=== PATIENT | male | born 1930 | race Caucasian/White ===

== ENCOUNTER 2016-05-21 01:21 | Inpatient (IN) | payer OTHER ==
[2016-05-21] VITALS (24 sets, daily range): BP systolic 107–147; BP diastolic 64–95
[~2016-05-21] VITALS: Ht 167.6 cm; Wt 73.7 kg
[~2016-05-21 01:21] MED LIST: ALLEGRA ODT30 MG PO; AMLODIPINE BESY10 MG PO; COREG CR10 MG PO; ECOTRIN325 MG PO; FLOMAX0.4 M1 PO; HYDROCHLOROTH12.5 M1 PO; OMEPRAZOLE40 M1 PO; PLAVIX75 MG PO; PRAVASTATIN SOD80 MG PO; PROAIR HFA8.5 GM IH; SINGULAIR10 MG PO; SYMBICORT60 INHALAT IH
[2016-05-21 01:59] LABS: HEMATOCRIT 40.8 % (38.0-50.0); MCH 32.6 PG (29.0-34.0); MCV 92.9 FL (86-99); MEAN PLAT.VOLUME 8.3 uM^3 (9.0-12.4); PLATELET COUNT 350 K/uL (156-360); RBC DIS.WIDTH-CV 14.5 % (11.8-14.6); RBC DIS.WIDTH-SD 47.2 % (39-53); RED BLOOD COUNT 4.39 M/uL (4.00-5.50); WHITE BLOOD COUNT 13.8 K/uL (4.1-10.2)
[2016-05-21 02:14] LABS: CHLORIDE 99 mEq/L (99-109); POTASSIUM 3.8 mEq/L (3.7-5.4); SODIUM 136 mEq/L (136-147)
[2016-05-21 02:16] LABS: GLUCOSE 149 mg/dL (70-99)
[2016-05-21 02:17] LABS: ANION GAP 13 MEQ/L (2-14)
[2016-05-21 02:19] LABS: ALKALINE PHOSPHATASE 177 IU/L (3-129)
[2016-05-21 02:20] LABS: GFR ESTIMATE (CALCULATED) 44 mL/min/
[2016-05-21 02:21] LABS: TROP-I INTERPRETATION NEGATIVE; TROPONIN-I 0.14 ng/mL (0.0-0.30)
[2016-05-21 02:21] LABS: UREA NITROGEN (BUN) 40 mg/dL (9-23)
[2016-05-21 02:40] LABS: TOTAL BILIRUBIN 0.9 mg/dL (0.0-1.0)
[2016-05-21 02:58] LABS: EOSINOPHIL (%) 0 % (0-5); HEMATOLOGY COMMENT 1 REV; IMMATURE GRANULOCYTE (%) 2.5 % (0.0-0.7); IMMATURE GRANULOCYTE COUNT 3.4 K/uL; MONOCYTE (%) 12.8 % (3-12); MONOCYTE COUNT 1.8 K/uL (0-0.8); NEUTROPHIL (%) 77.2 % (45-76); NEUTROPHIL COUNT 10.6 K/uL (1.8-6.4); USER ID SLU
[2016-05-21] MEDS ORDERED: AMLODIPINE BESYL5 MG PO (05:40)
[2016-05-21] MEDS ORDERED: OMEPRAZOLE20 MG PO (05:42)
[2016-05-21] MEDS ORDERED: POTASSIUM CHLO20 ME1 PO (05:43)
[2016-05-21] MEDS ORDERED: FUROSEMIDE40 MG PO (05:47)
[2016-05-21 06:58] LABS: INTER. NORMALIZED RATIO 1.1; PROTHROMBIN TIME 11.1 (9.2-11.2); PTT 33.6 (25-32)
[2016-05-21 07:24] LABS: INFLUENZA A VIRAL ANTIGEN NEGATIVE; INFLUENZA B VIRAL ANTIGEN NEGATIVE
[2016-05-21 07:27] LABS: Estimated Average Glucose 123 mg/dL (70-123); HEMOGLOBIN A1c (GLYCOHEMOGLOB) 5.9 % HGB (Below 5.7)
[2016-05-21] MEDS ORDERED: FLOMAX0.4 MG PO (08:33)
[2016-05-21] MEDS ORDERED: SINGULAIR10 MG PO (08:33)
[2016-05-21] MEDS ORDERED: VENTOLIN HFA18 GM IH (08:35)
[2016-05-21 08:44] LABS: ADD MIUA? NO; BILIRUBIN NEGATIVE; BLOOD NEGATIVE; COLOR YELLOW ((YELLOW)); GLUCOSE (STRIP) NEGATIVE; KETONES NEGATIVE; LEUKOCYTES NEGATIVE; NITRITE NEGATIVE; PROTEIN (STRIP) TRACE; SPECIFIC GRAVITY 1.013 (1.000-1.030); UCUL ADDED? NO
[2016-05-21 10:14] LABS: TROP-I INTERPRETATION NEGATIVE; TROPONIN-I 0.16 ng/mL (0.0-0.30)
[2016-05-21 10:25] LABS: HEMATOCRIT 40.2 % (38.0-50.0); MCH 32.6 PG (29.0-34.0); MCHC 35.1 G/DL (30.0-36.0); MCV 92.8 FL (86-99); MEAN PLAT.VOLUME 8.5 uM^3 (9.0-12.4); PLATELET COUNT 350 K/uL (156-360); RBC DIS.WIDTH-CV 14.3 % (11.8-14.6); RBC DIS.WIDTH-SD 46.6 % (39-53); RED BLOOD COUNT 4.33 M/uL (4.00-5.50); WHITE BLOOD COUNT 10.5 K/uL (4.1-10.2)
[2016-05-21 10:34] LABS: CHLORIDE 100 mEq/L (99-109); POTASSIUM 3.9 mEq/L (3.7-5.4)
[2016-05-21 10:35] LABS: SODIUM 134 mEq/L (136-147)
[2016-05-21 10:37] LABS: GLUCOSE 190 mg/dL (70-99)
[2016-05-21 10:38] LABS: ANION GAP 13 MEQ/L (2-14)
[2016-05-21 10:39] LABS: TOTAL BILIRUBIN 0.8 mg/dL (0.0-1.0)
[2016-05-21 10:40] LABS: ALKALINE PHOSPHATASE 167 IU/L (3-129); GFR ESTIMATE (CALCULATED) 47 mL/min/
[2016-05-21 10:42] LABS: UREA NITROGEN (BUN) 39 mg/dL (9-23)
[2016-05-21 16:01] LABS: TROP-I INTERPRETATION NEGATIVE; TROPONIN-I 0.12 ng/mL (0.0-0.30)
[2016-05-22 03:15] VITALS: BP 121/81
[2016-05-22 05:27] LABS: MCH 31.3 PG (29.0-34.0); MCHC 33.5 G/DL (30.0-36.0); MCV 93.5 FL (86-99); MEAN PLAT.VOLUME 9.1 uM^3 (9.0-12.4); PLATELET COUNT 289 K/uL (156-360); RBC DIS.WIDTH-CV 14.4 % (11.8-14.6); RBC DIS.WIDTH-SD 48.7 % (39-53); RED BLOOD COUNT 4.28 M/uL (4.00-5.50); WHITE BLOOD COUNT 8.9 K/uL (4.1-10.2)
[2016-05-22 09:30] VITALS: BP 121/81
[2016-05-22 12:10] VITALS: BP 121/86
[2016-05-22 12:10] LABS: INTER. NORMALIZED RATIO 1.2; PROTHROMBIN TIME 11.8 (9.2-11.2)
[2016-05-22 19:51] VITALS: BP 122/78
[2016-05-23 01:44] VITALS: BP 125/76
[2016-05-23 05:42] LABS: HEMATOCRIT 38.8 % (38.0-50.0); MCH 31.7 PG (29.0-34.0); MEAN PLAT.VOLUME 9.4 uM^3 (9.0-12.4); PLATELET COUNT 288 K/uL (156-360); RBC DIS.WIDTH-CV 14.3 % (11.8-14.6); RBC DIS.WIDTH-SD 48.5 % (39-53); RED BLOOD COUNT 4.17 M/uL (4.00-5.50); WHITE BLOOD COUNT 10.1 K/uL (4.1-10.2)
[2016-05-23 05:50] VITALS: BP 130/81
[2016-05-23 05:50] LABS: ANION GAP 13 MEQ/L (2-14); CHLORIDE 96 MEQ/L (99-109); GFR ESTIMATE (CALCULATED) 47 mL/min/; GLUCOSE 164 mg/dL (70-99); POTASSIUM 3.7 MEQ/L (3.7-5.4); SAMPLE HEMOLYSIS CHECK 0; SAMPLE ICTERIC CHECK 0; SAMPLE LIPEMIA CHECK 0; SODIUM 133 MEQ/L (136-147)
[2016-05-23 06:02] LABS: UREA NITROGEN (BUN) 60 mg/dL (9-23)
[2016-05-23 08:28] VITALS: BP 130/80
[2016-05-23 11:03] VITALS: BP 128/82
[2016-05-23 15:33] VITALS: BP 117/74
[2016-05-23 20:20] VITALS: BP 131/64
[2016-05-24 00:42] VITALS: BP 147/81
[2016-05-24 05:38] VITALS: BP 123/71
[2016-05-24 07:16] LABS: HEMATOCRIT 40.3 % (38.0-50.0); MCH 31.4 PG (29.0-34.0); MCHC 33.7 G/DL (30.0-36.0); MCV 93.1 FL (86-99); MEAN PLAT.VOLUME 9.3 uM^3 (9.0-12.4); PLATELET COUNT 284 K/uL (156-360); RBC DIS.WIDTH-CV 14.4 % (11.8-14.6); RBC DIS.WIDTH-SD 48.6 % (39-53); RED BLOOD COUNT 4.33 M/uL (4.00-5.50); WHITE BLOOD COUNT 8.9 K/uL (4.1-10.2)
[2016-05-24 07:26] VITALS: BP 121/71
[2016-05-24 07:34] LABS: ANION GAP 12 MEQ/L (2-14); CHLORIDE 97 MEQ/L (99-109); GFR ESTIMATE (CALCULATED) 47 mL/min/; GLUCOSE 161 mg/dL (70-99); SAMPLE HEMOLYSIS CHECK 0; SAMPLE ICTERIC CHECK 0; SAMPLE LIPEMIA CHECK 0; SODIUM 135 MEQ/L (136-147); UREA NITROGEN (BUN) 61 mg/dL (9-23)
[2016-05-24 11:17] VITALS: BP 122/78
[2016-05-24 16:00] VITALS: BP 121/74
[2016-05-24 19:34] VITALS: BP 130/84
[2016-05-25] VITALS (7 sets, daily range): BP systolic 113–138; BP diastolic 62–92
[2016-05-25 06:51] LABS: EOSINOPHIL (%) 0 % (0-5); HEMATOCRIT 41.3 % (38.0-50.0); IMMATURE GRANULOCYTE (%) 1.4 % (0.0-0.7); IMMATURE GRANULOCYTE COUNT 0.2 K/uL; LYMPHOCYTE COUNT 0.7 K/uL (1.0-2.8); MCH 33.7 PG (29.0-34.0); MCHC 35.6 G/DL (30.0-36.0); MCV 94.7 FL (86-99); MEAN PLAT.VOLUME 9.4 uM^3 (9.0-12.4); MONOCYTE (%) 1.7 % (3-12); MONOCYTE COUNT 0.2 K/uL (0-0.8); NEUTROPHIL (%) 89.8 % (45-76); NEUTROPHIL COUNT 9.5 K/uL (1.8-6.4); PLATELET COUNT 264 K/uL (156-360); RBC DIS.WIDTH-CV 14.3 % (11.8-14.6); RBC DIS.WIDTH-SD 49.4 % (39-53); RED BLOOD COUNT 4.36 M/uL (4.00-5.50); WHITE BLOOD COUNT 10.5 K/uL (4.1-10.2)
[2016-05-25 07:16] LABS: ANION GAP 12 MEQ/L (2-14); CHLORIDE 98 MEQ/L (99-109); GFR ESTIMATE (CALCULATED) 47 mL/min/; GLUCOSE 190 mg/dL (70-99); SAMPLE HEMOLYSIS CHECK 0; SAMPLE ICTERIC CHECK 0; SAMPLE LIPEMIA CHECK 0; SODIUM 137 MEQ/L (136-147); UREA NITROGEN (BUN) 62 mg/dL (9-23)
[2016-05-26 04:11] VITALS: BP 139/78
[2016-05-26 06:41] LABS: HEMATOCRIT 42.1 % (38.0-50.0); MCHC 34.7 G/DL (30.0-36.0); MEAN PLAT.VOLUME 9.7 uM^3 (9.0-12.4); PLATELET COUNT 254 K/uL (156-360); RBC DIS.WIDTH-CV 14.4 % (11.8-14.6); RBC DIS.WIDTH-SD 49.8 % (39-53); RED BLOOD COUNT 4.43 M/uL (4.00-5.50); WHITE BLOOD COUNT 9.2 K/uL (4.1-10.2)
[2016-05-26 07:06] LABS: ANION GAP 10 MEQ/L (2-14); CHLORIDE 97 MEQ/L (99-109); GFR ESTIMATE (CALCULATED) 51 mL/min/; GLUCOSE 179 mg/dL (70-99); MAGNESIUM 2.4 mg/dl (1.3-2.7); POTASSIUM 4.1 MEQ/L (3.7-5.4); SAMPLE HEMOLYSIS CHECK 0; SAMPLE ICTERIC CHECK 0; SAMPLE LIPEMIA CHECK 0; SODIUM 136 MEQ/L (136-147); UREA NITROGEN (BUN) 58 mg/dL (9-23)
[2016-05-26 07:38] VITALS: BP 135/75
[2016-05-26 11:47] VITALS: BP 120/79
[2016-05-26 15:50] VITALS: BP 134/70
[2016-05-26 19:23] VITALS: BP 122/78
[2016-05-27] VITALS (7 sets, daily range): BP systolic 115–137; BP diastolic 66–85
[2016-05-27 06:30] LABS: HEMATOCRIT 44.5 % (38.0-50.0); MCH 33.5 PG (29.0-34.0); MCHC 35.1 G/DL (30.0-36.0); MCV 95.5 FL (86-99); MEAN PLAT.VOLUME 9.9 uM^3 (9.0-12.4); PLATELET COUNT 246 K/uL (156-360); RBC DIS.WIDTH-CV 14.4 % (11.8-14.6); RBC DIS.WIDTH-SD 49.4 % (39-53); RED BLOOD COUNT 4.66 M/uL (4.00-5.50)
[2016-05-27 06:53] LABS: ANION GAP 8 MEQ/L (2-14); CHLORIDE 97 MEQ/L (99-109); GFR ESTIMATE (CALCULATED) 47 mL/min/; GLUCOSE 185 mg/dL (70-99); MAGNESIUM 2.6 mg/dl (1.3-2.7); POTASSIUM 4.1 MEQ/L (3.7-5.4); SAMPLE HEMOLYSIS CHECK 0; SAMPLE ICTERIC CHECK 0; SAMPLE LIPEMIA CHECK 0; SODIUM 135 MEQ/L (136-147); UREA NITROGEN (BUN) 66 mg/dL (9-23)
[2016-05-28 03:34] VITALS: BP 119/57
[2016-05-28 07:09] LABS: HEMATOCRIT 43.1 % (38.0-50.0); MCH 33.2 PG (29.0-34.0); MCHC 34.8 G/DL (30.0-36.0); MCV 95.4 FL (86-99); PLATELET COUNT 227 K/uL (156-360); RBC DIS.WIDTH-CV 14.4 % (11.8-14.6); RBC DIS.WIDTH-SD 50.3 % (39-53); RED BLOOD COUNT 4.52 M/uL (4.00-5.50); WHITE BLOOD COUNT 11.2 K/uL (4.1-10.2)
[2016-05-28 07:34] LABS: ANION GAP 8 MEQ/L (2-14); CHLORIDE 100 MEQ/L (99-109); GFR ESTIMATE (CALCULATED) 56 mL/min/; GLUCOSE 158 mg/dL (70-99); MAGNESIUM 2.5 mg/dl (1.3-2.7); POTASSIUM 4.1 MEQ/L (3.7-5.4); SAMPLE HEMOLYSIS CHECK 0; SAMPLE ICTERIC CHECK 0; SAMPLE LIPEMIA CHECK 0; SODIUM 136 MEQ/L (136-147); UREA NITROGEN (BUN) 59 mg/dL (9-23)
[2016-05-28 08:00] VITALS: BP 135/84
[2016-05-28 11:37] VITALS: BP 114/67
[2016-05-28 16:50] VITALS: BP 117/72
[2016-05-28 19:42] VITALS: BP 107/62
[2016-05-28 21:04] LABS: INTERNAL CONTROL VALID? YES
[2016-05-28 21:30] LABS: C DIFF TOXIN NEGATIVE (NEGATIVE)
[2016-05-28 21:48] LABS: PROBE CHECK PASS; SPECIMEN PROCESSING CONTROL PASS
[2016-05-29] VITALS (7 sets, daily range): BP systolic 94–125; BP diastolic 51–75
[2016-05-29 06:35] LABS: HEMATOCRIT 44.5 % (38.0-50.0); MCH 31.6 PG (29.0-34.0); MCHC 32.8 G/DL (30.0-36.0); MCV 96.3 FL (86-99); PLATELET COUNT 206 K/uL (156-360); RBC DIS.WIDTH-CV 14.7 % (11.8-14.6); RBC DIS.WIDTH-SD 51.9 % (39-53); RED BLOOD COUNT 4.62 M/uL (4.00-5.50); WHITE BLOOD COUNT 12.4 K/uL (4.1-10.2)
[2016-05-30 00:46] VITALS: BP 103/59
[2016-05-30 04:23] VITALS: BP 119/68
[2016-05-30 06:24] LABS: HEMATOCRIT 41.9 % (38.0-50.0); MCHC 34.4 G/DL (30.0-36.0); MCV 96.1 FL (86-99); MEAN PLAT.VOLUME 10.4 uM^3 (9.0-12.4); PLATELET COUNT 197 K/uL (156-360); RBC DIS.WIDTH-CV 14.7 % (11.8-14.6); RBC DIS.WIDTH-SD 51.7 % (39-53); RED BLOOD COUNT 4.36 M/uL (4.00-5.50); WHITE BLOOD COUNT 12.6 K/uL (4.1-10.2)
[2016-05-30 06:49] LABS: ANION GAP 6 MEQ/L (2-14); CHLORIDE 104 MEQ/L (99-109); GFR ESTIMATE (CALCULATED) > 59 mL/min/; GLUCOSE 137 mg/dL (70-99); POTASSIUM 4.1 MEQ/L (3.7-5.4); SAMPLE HEMOLYSIS CHECK 0; SAMPLE ICTERIC CHECK 0; SAMPLE LIPEMIA CHECK 0; SODIUM 139 MEQ/L (136-147); UREA NITROGEN (BUN) 45 mg/dL (9-23)
[2016-05-30 06:56] LABS: EOSINOPHIL (%) 0 % (0-5); IMMATURE GRANULOCYTE (%) 2.5 % (0.0-0.7); IMMATURE GRANULOCYTE COUNT 0.3 K/uL; LYMPHOCYTE COUNT 0.6 K/uL (1.0-2.8); MONOCYTE (%) 9.1 % (3-12); MONOCYTE COUNT 1.2 K/uL (0-0.8); NEUTROPHIL (%) 83.4 % (45-76); NEUTROPHIL COUNT 10.5 K/uL (1.8-6.4)
[2016-05-30 07:02] LABS: HEMATOLOGY COMMENT 1 SMEAR COMPATIBLE; PLAT.SUFFICIENCY ADEQUATE; USER ID TLW
[2016-05-30 08:00] VITALS: BP 137/76
[2016-05-30] MEDS ORDERED: DIGOXIN250 MCG PO (11:37)
[2016-05-30] MEDS ORDERED: DUONEB 2.5-0.5 M3 ML AEROSOL (11:37)
[2016-05-30] MEDS ORDERED: ELIQUIS2.5 MG PO (11:37)
[2016-05-30] MEDS ORDERED: CARVEDILOL25 MG PO (11:38)
[2016-05-30] MEDS ORDERED: LISINOPRIL5 MG PO (11:38)
[2016-05-30] MEDS ORDERED: ASPIR-LOW81 MG PO (11:38)
[2016-05-30] MEDS ORDERED: PANTOPRAZOLE SO40 MG PO (11:39)
[2016-05-30] MEDS ORDERED: MEDROL DOSEPAK4 MG PO (11:41)
[2016-05-30] MEDS ORDERED: PREDNISONE20 MG PO (11:41)
[2016-05-30] MEDS ORDERED: ALPRAZOLAM0.25 M2 PO (11:42)
[2016-05-30] MEDS ORDERED: FOLIC ACID1 MG PO (11:49)
[2016-05-30] MEDS ORDERED: THIAMINE HCL100 MG PO (11:49)
[2016-05-30 12:26] VITALS: BP 96/61
[2016-05-30 16:00] VITALS: BP 126/77
== END 2016-05-30 17:03 | disposition home health service (06) | DRG 286 ==
LOC: EME → EDBD 01:21 → EME 01:21 → 4EAST 03:32 → EDOF 03:32 → 4EAST 17:23 → 5SOUTH 05-29 17:27
PROVIDERS: Emergency Medicine; Internal Medicine; Nurse Practitioner Family; Physician Assistant
DX: I50.21 Acute systolic (congestive) heart failure (principal); J96.21 Acute and chronic respiratory failure with hypoxia; I42.6 Alcoholic cardiomyopathy; F10.231 Alcohol dependence with withdrawal delirium; J44.1 Chronic obstructive pulmonary disease with (acute) exacerbation; J44.0 Chronic obstructive pulmonary disease with (acute) lower respiratory infection; J20.9 Acute bronchitis, unspecified; N17.9 Acute kidney failure, unspecified; I13.0 Hypertensive heart and chronic kidney disease with heart failure and stage 1 through stage 4 chronic kidney disease, or unspecified chronic kidney disease; N18.3 Chronic kidney disease, stage 3 (moderate); I48.91 Unspecified atrial fibrillation; R19.7 Diarrhea, unspecified; I71.2 Thoracic aortic aneurysm, without rupture; I70.0 Atherosclerosis of aorta; I27.2 Other secondary pulmonary hypertension; I25.10 Atherosclerotic heart disease of native coronary artery without angina pectoris; I73.9 Peripheral vascular disease, unspecified; R73.9 Hyperglycemia, unspecified; K21.9 Gastro-esophageal reflux disease without esophagitis; E78.00 Pure hypercholesterolemia, unspecified; E78.5 Hyperlipidemia, unspecified; I36.1 Nonrheumatic tricuspid (valve) insufficiency; Z87.891 Personal history of nicotine dependence
CPT/HCPCS: 71010; 71250; 80048; 80053; 81003; 82272; 83036; 83605; 83735; 83880; 84443; 84484; 85025; 85027; 85610; 85730; 87040; 87177; 87493; 87502; 93005; 93306; 94010; 94640; 94640 76; 94760; 94799; 97530 GO; 97530 GP; 99202; 99281; 99285; C1769; C1887; J1644; J1650; J1940; J1956; J2250; J2920; J2930; J3010; J7040; J7512

== ENCOUNTER 2016-06-19 19:05 | Inpatient (IN) | payer OTHER ==
[~2016-06-19] VITALS: Ht 170.2 cm; Wt 71.1 kg
[~2016-06-19 19:05] MED LIST changes: +ALPRAZOLAM0.25 M2 PO; +AMLODIPINE BESYL5 MG PO; +ASPIR-LOW81 MG PO; +CARVEDILOL25 MG PO; +DIGOXIN250 MCG PO; +DUONEB 2.5-0.5 M3 ML AEROSOL; +ELIQUIS2.5 MG PO; +FLOMAX0.4 MG PO; +FOLIC ACID1 MG PO; +FUROSEMIDE40 MG PO; +LISINOPRIL5 MG PO; +MEDROL DOSEPAK4 MG PO; +OMEPRAZOLE20 MG PO; +PANTOPRAZOLE SO40 MG PO; +POTASSIUM CHLO20 ME1 PO; +PREDNISONE20 MG PO; +THIAMINE HCL100 MG PO; +VENTOLIN HFA18 GM IH
[2016-06-19 19:44] LABS: HEMATOCRIT 50.6 % (38.0-50.0); MCH 31.9 PG (29.0-34.0); MCV 99.6 FL (86-99); NRBC (%) 0.3 /100 WBC (0-0); RBC DIS.WIDTH-CV 15.1 % (11.8-14.6); RBC DIS.WIDTH-SD 55.9 % (39-53); RED BLOOD COUNT 5.08 M/uL (4.00-5.50); WHITE BLOOD COUNT 8.6 K/uL (4.1-10.2)
[2016-06-19 19:48] LABS: BASE EXCESS 5.8 mEq/L (-3 to +3); BICARBONATE 28.6 mEq/L (22-26); CARBOXY HGB 1.4 % (0-5); METHEMOGLOBIN 1.1 % (0-1.5); PCO2 35 mm Hg (35-45); PO2 428 mm Hg (80-100); pH 7.52 (7.35-7.45)
[2016-06-19 19:49] LABS: COMMENTS - BLOOD GASES A+C+; DEVICE NRBM; FI02 100 %; O2 FLOW 15 L/MIN; SITE LR; TOTAL RESP RATE 22 resp/min
[2016-06-19 19:50] LABS: PLATELET COUNT 161 K/uL (156-360)
[2016-06-19 19:58] LABS: CHLORIDE 106 mEq/L (99-109); POTASSIUM 5.4 mEq/L (3.7-5.4); SODIUM 148 mEq/L (136-147)
[2016-06-19 20:00] LABS: GLUCOSE 143 mg/dL (70-99)
[2016-06-19 20:01] LABS: ANION GAP 14 MEQ/L (2-14)
[2016-06-19 20:04] LABS: GFR ESTIMATE (CALCULATED) 29 mL/min/; UREA NITROGEN (BUN) 69 mg/dL (9-23)
[2016-06-19 20:09] LABS: TROP-I INTERPRETATION INDETERMINATE; TROPONIN-I 0.57 ng/mL (0.0-0.30)
[2016-06-19 20:15] LABS: INTER. NORMALIZED RATIO 1.1; PTT 30.2 (25-32)
[2016-06-19 20:24] LABS: CHLORIDE 105 mEq/L (99-109); POTASSIUM 5.5 mEq/L (3.7-5.4); SODIUM 146 mEq/L (136-147)
[2016-06-19 20:26] LABS: GLUCOSE 142 mg/dL (70-99)
[2016-06-19 20:28] LABS: ANION GAP 13 MEQ/L (2-14); TOTAL BILIRUBIN 0.8 mg/dL (0.0-1.0)
[2016-06-19 20:30] LABS: ALKALINE PHOSPHATASE 147 IU/L (3-129); GFR ESTIMATE (CALCULATED) 30 mL/min/
[2016-06-19 20:31] LABS: UREA NITROGEN (BUN) 70 mg/dL (9-23)
[2016-06-19 20:33] LABS: LIPASE 23 U/L (1.0-51.0)
[2016-06-19 20:43] LABS: INFLUENZA A VIRAL ANTIGEN NEGATIVE; INFLUENZA B VIRAL ANTIGEN NEGATIVE
[2016-06-19 21:07] LABS: DIGOXIN > 4.0 ng/mL (0.8-2.0)
[2016-06-19 21:43] LABS: CREATININE 2.1 mg/dL (0.6-1.3)
[2016-06-19 22:19] LABS: ADD MIUA? YES; BILIRUBIN NEGATIVE; BLOOD NEGATIVE; COLOR YELLOW ((YELLOW)); GLUCOSE (STRIP) NEGATIVE; KETONES NEGATIVE; LEUKOCYTES TRACE; NITRITE POSITIVE; PROTEIN (STRIP) NEGATIVE; SPECIFIC GRAVITY 1.016 (1.000-1.030); UROBILINOGEN 0.2 MG/DL (0.2-1.0)
[2016-06-19 22:26] LABS: MAGNESIUM 2.6 mg/dL (1.3-2.7)
[2016-06-19 22:45] LABS: CASTS PRESENT /LPF; CRYSTALS PRESENT; EPITHELIAL CELLS RARE /HPF; HYALINE CASTS 0-5 /LPF; MUCUS NONE SEEN /LPF; RED BLOOD CELLS 0-5 /HPF (0-5); UCUL ADDED? YES
[2016-06-19 22:46] LABS: AMORPHOUS URATES CRYSTALS 3+; BACTERIA 2+ /HPF
[2016-06-19] MEDS ORDERED: COREG12.5 M1 PO (23:12)
[2016-06-20] VITALS (8 sets, daily range): BP systolic 95–132; BP diastolic 43–66
[2016-06-20 02:17] LABS: CHLORIDE 110 mEq/L (99-109); POTASSIUM 5.6 mEq/L (3.7-5.4); SODIUM 147 mEq/L (136-147)
[2016-06-20 02:19] LABS: GLUCOSE 153 mg/dL (70-99)
[2016-06-20 02:20] LABS: ANION GAP 13 MEQ/L (2-14)
[2016-06-20 02:23] LABS: GFR ESTIMATE (CALCULATED) 29 mL/min/
[2016-06-20 02:24] LABS: UREA NITROGEN (BUN) 73 mg/dL (9-23)
[2016-06-20 02:32] LABS: TROP-I INTERPRETATION POSITIVE; TROPONIN-I 0.63 ng/mL (0.0-0.30)
[2016-06-20 08:46] LABS: TROP-I INTERPRETATION INDETERMINATE; TROPONIN-I 0.55 ng/mL (0.0-0.30)
[2016-06-20 09:08] LABS: METH RESISTANT S AUREUS PCR NEGATIVE (NEGATIVE); PROBE CHECK PASS; SPECIMEN PROCESSING CONTROL PASS
[2016-06-20 14:29] LABS: HBSG INDEX 0.28; HPCA INDEX 0.11
[2016-06-20 14:31] LABS: ANTI-HEPATITIS A VIRUS (IGM) Nonreactive; ANTI-HEPATITIS B CORE (IGM) Nonreactive; HAV INDEX 0.21; HBC IgM INDEX 0.05
[2016-06-20 23:01] LABS: INTER. NORMALIZED RATIO 1.1; PTT 29.2 (25-32)
[2016-06-20 23:53] LABS: ABS NEUTROPHIL COUNT 9.4; EOSINOPHIL ABS CT 0; HEMATOCRIT 38.9 % (38.0-50.0); INSTRUMENT ABS NEUTROPHIL CT 7.8 K/uL; MCHC 32.1 G/DL (30.0-36.0); MCV 99.5 FL (86-99); MEAN PLAT.VOLUME 9.4 uM^3 (9.0-12.4); NRBC (%) 0.5 /100 WBC (0-0); PLATELET CLUMPS PRESENT - PLATELET COUNT APPEARS ADQ.; PLATELET COUNT 148 K/uL (156-360); POLYCHROMASIA 2+; RBC DIS.WIDTH-CV 15.3 % (11.8-14.6); RBC DIS.WIDTH-SD 56.3 % (39-53); RED BLOOD COUNT 3.91 M/uL (4.00-5.50); WHITE BLOOD COUNT 11.8 K/uL (4.1-10.2)
[2016-06-21] VITALS (8 sets, daily range): BP systolic 104–127; BP diastolic 52–79
[2016-06-21 06:16] LABS: HEMATOCRIT 41.7 % (38.0-50.0); MCH 31.6 PG (29.0-34.0); MCHC 31.4 G/DL (30.0-36.0); MCV 100.5 FL (86-99); NRBC (%) 0.3 /100 WBC (0-0); PLATELET COUNT 142 K/uL (156-360); RBC DIS.WIDTH-CV 15.3 % (11.8-14.6); RBC DIS.WIDTH-SD 56.6 % (39-53); RED BLOOD COUNT 4.15 M/uL (4.00-5.50); WHITE BLOOD COUNT 12.2 K/uL (4.1-10.2)
[2016-06-21 07:06] LABS: ABS NEUTROPHIL COUNT 9.5; EOSINOPHIL ABS CT 0; INSTRUMENT ABS NEUTROPHIL CT 8.1 K/uL; MACROCYTES 1+; PLAT.SUFFICIENCY DECREASED
[2016-06-21 10:33] LABS: ALKALINE PHOSPHATASE 103 IU/L (3-129); GFR ESTIMATE (CALCULATED) 38 mL/min/; UREA NITROGEN (BUN) 58 mg/dL (9-23)
[2016-06-21 10:42] LABS: GLUCOSE 91 mg/dL (70-99)
[2016-06-21 11:24] LABS: ANION GAP 15 MEQ/L (2-14); CHLORIDE 109 MEQ/L (99-109); MAGNESIUM 2.5 mg/dl (1.3-2.7); POTASSIUM 4.9 MEQ/L (3.7-5.4); SAMPLE HEMOLYSIS CHECK 0; SAMPLE ICTERIC CHECK 0; SAMPLE LIPEMIA CHECK 0; SODIUM 149 MEQ/L (136-147); TOTAL BILIRUBIN 0.7 MG/DL (0.0-1.0)
[2016-06-22] VITALS (9 sets, daily range): BP systolic 113–133; BP diastolic 50–81
[2016-06-22 03:59] LABS: HEMATOCRIT 39.8 % (38.0-50.0); MCH 31.6 PG (29.0-34.0); MCHC 31.7 G/DL (30.0-36.0); MCV 99.7 FL (86-99); MEAN PLAT.VOLUME 9.5 uM^3 (9.0-12.4); NRBC (%) 0.5 /100 WBC (0-0); PLATELET COUNT 143 K/uL (156-360); RBC DIS.WIDTH-CV 15.5 % (11.8-14.6); RBC DIS.WIDTH-SD 56.9 % (39-53); RED BLOOD COUNT 3.99 M/uL (4.00-5.50); WHITE BLOOD COUNT 10.7 K/uL (4.1-10.2)
[2016-06-22 04:13] LABS: CHLORIDE 116 mEq/L (99-109); POTASSIUM 4.4 mEq/L (3.7-5.4); SODIUM 150 mEq/L (136-147)
[2016-06-22 04:15] LABS: GLUCOSE 80 mg/dL (70-99)
[2016-06-22 04:16] LABS: MAGNESIUM 1.9 mg/dL (1.3-2.7)
[2016-06-22 04:17] LABS: ANION GAP 13 MEQ/L (2-14)
[2016-06-22 04:19] LABS: GFR ESTIMATE (CALCULATED) 47 mL/min/
[2016-06-22 04:20] LABS: UREA NITROGEN (BUN) 52 mg/dL (9-23)
[2016-06-22 05:52] LABS: ABS NEUTROPHIL COUNT 7.9; ANISOCYTOSIS 1+; ATYPICAL LYMPHOCYTE 3.8 %; BAND NEUTROPHILS 2.8 % (0-8.0); EOSINOPHIL ABS CT 0; INSTRUMENT ABS NEUTROPHIL CT 6.9 K/uL; LYMPHOCYTES 6.7 % (15.0-45.0); MACROCYTES 1+; METAMYELOCYTES 6.7 %; PLAT.SUFFICIENCY DECREASED; POIKILOCYTOSIS 1+; POLYCHROMASIA 2+; SEG.NEUTROPHILS 71.4 % (46.0-76.0)
[2016-06-22 08:49] LABS: DIGOXIN 3.4 ng/mL (0.8-2.0)
[2016-06-22 20:47] LABS: HEMATOCRIT 39.7 % (38.0-50.0); MCH 31.7 PG (29.0-34.0); MCHC 31.7 G/DL (30.0-36.0); MEAN PLAT.VOLUME 9.4 uM^3 (9.0-12.4); NRBC (%) 0.3 /100 WBC (0-0); PLATELET COUNT 134 K/uL (156-360); RBC DIS.WIDTH-CV 15.9 % (11.8-14.6); RBC DIS.WIDTH-SD 58.6 % (39-53); RED BLOOD COUNT 3.97 M/uL (4.00-5.50); WHITE BLOOD COUNT 13.9 K/uL (4.1-10.2)
[2016-06-22 21:09] LABS: TROP-I INTERPRETATION POSITIVE; TROPONIN-I 2.54 ng/mL (0.0-0.30)
[2016-06-22 21:41] LABS: ALKALINE PHOSPHATASE 113 IU/L (3-129); ANION GAP 10 MEQ/L (2-14); CHLORIDE 115 MEQ/L (99-109); GFR ESTIMATE (CALCULATED) 51 mL/min/; POTASSIUM 3.8 MEQ/L (3.7-5.4); SAMPLE HEMOLYSIS CHECK 0; SAMPLE ICTERIC CHECK 0; SAMPLE LIPEMIA CHECK 0; SODIUM 149 MEQ/L (136-147); UREA NITROGEN (BUN) 46 mg/dL (9-23)
[2016-06-22 21:43] LABS: GLUCOSE 106 mg/dL (70-99); TOTAL BILIRUBIN 0.5 MG/DL (0.0-1.0)
[2016-06-22 22:02] LABS: DIGOXIN 2.5 ng/mL (0.8-2.0)
[2016-06-22 22:32] LABS: INTER. NORMALIZED RATIO 1.1; PROTHROMBIN TIME 10.7 (9.2-11.2)
[2016-06-22 22:35] LABS: PTT 27.7 (25-32)
[2016-06-23 02:41] LABS: TROP-I INTERPRETATION POSITIVE; TROPONIN-I 3.05 ng/mL (0.0-0.30)
[2016-06-23 03:26] VITALS: BP 137/69
[2016-06-23 07:35] VITALS: BP 125/74
[2016-06-23 09:19] LABS: HEMATOCRIT 38.6 % (38.0-50.0); MCH 31.6 PG (29.0-34.0); MCHC 31.9 G/DL (30.0-36.0); MCV 99.2 FL (86-99); MEAN PLAT.VOLUME 9.4 uM^3 (9.0-12.4); NRBC (%) 0.4 /100 WBC (0-0); PLATELET COUNT 149 K/uL (156-360); RBC DIS.WIDTH-CV 15.9 % (11.8-14.6); RBC DIS.WIDTH-SD 57.5 % (39-53); RED BLOOD COUNT 3.89 M/uL (4.00-5.50); WHITE BLOOD COUNT 15.2 K/uL (4.1-10.2)
[2016-06-23 09:50] LABS: TROP-I INTERPRETATION POSITIVE; TROPONIN-I 4.32 ng/mL (0.0-0.30)
[2016-06-23 10:45] LABS: ANION GAP 13 MEQ/L (2-14); CHLORIDE 116 MEQ/L (99-109); GFR ESTIMATE (CALCULATED) 51 mL/min/; GLUCOSE 108 mg/dL (70-99); SAMPLE HEMOLYSIS CHECK 1; SAMPLE ICTERIC CHECK 0; SAMPLE LIPEMIA CHECK 0; SODIUM 151 MEQ/L (136-147); UREA NITROGEN (BUN) 43 mg/dL (9-23)
[2016-06-23 10:47] LABS: POTASSIUM 4.1 MEQ/L (3.7-5.4)
[2016-06-23 11:12] VITALS: BP 112/56
[2016-06-23 11:27] LABS: ABS NEUTROPHIL COUNT 11.6; ANISOCYTOSIS 1+; EOSINOPHIL ABS CT 0; INSTRUMENT ABS NEUTROPHIL CT 9.8 K/uL; MACROCYTES 1+; OVALOCYTES 1+; PLAT.SUFFICIENCY ADEQUATE; POIKILOCYTOSIS 1+
[2016-06-23 15:58] VITALS: BP 131/85
[2016-06-23 19:48] VITALS: BP 121/84
[2016-06-24 00:22] VITALS: BP 149/63
[2016-06-24 04:12] VITALS: BP 120/60
[2016-06-24 07:44] LABS: HEMATOCRIT 35.5 % (38.0-50.0); MCH 31.9 PG (29.0-34.0); MCHC 32.7 G/DL (30.0-36.0); MCV 97.5 FL (86-99); MEAN PLAT.VOLUME 9.6 uM^3 (9.0-12.4); NRBC (%) 0.3 /100 WBC (0-0); PLATELET COUNT 135 K/uL (156-360); RBC DIS.WIDTH-SD 57.2 % (39-53); RED BLOOD COUNT 3.64 M/uL (4.00-5.50); WHITE BLOOD COUNT 16.9 K/uL (4.1-10.2)
[2016-06-24 07:55] VITALS: BP 118/56
[2016-06-24 08:18] LABS: DIGOXIN 1.8 ng/mL (0.8-2.0)
[2016-06-24 08:31] LABS: ANION GAP 10 MEQ/L (2-14); CHLORIDE 115 MEQ/L (99-109); GFR ESTIMATE (CALCULATED) 51 mL/min/; GLUCOSE 117 mg/dL (70-99); POTASSIUM 3.7 MEQ/L (3.7-5.4); SAMPLE HEMOLYSIS CHECK 0; SAMPLE ICTERIC CHECK 0; SAMPLE LIPEMIA CHECK 0; SODIUM 149 MEQ/L (136-147); UREA NITROGEN (BUN) 40 mg/dL (9-23)
[2016-06-24 11:20] VITALS: BP 125/60
[2016-06-24 15:04] VITALS: BP 128/71
[2016-06-24 20:00] VITALS: BP 135/64
[2016-06-25] VITALS (8 sets, daily range): BP systolic 105–143; BP diastolic 52–76
[2016-06-25 07:26] LABS: ANION GAP 11 MEQ/L (2-14); CHLORIDE 110 MEQ/L (99-109); GFR ESTIMATE (CALCULATED) 56 mL/min/; SAMPLE HEMOLYSIS CHECK 2; SAMPLE ICTERIC CHECK 0; SAMPLE LIPEMIA CHECK 0; SODIUM 143 MEQ/L (136-147); UREA NITROGEN (BUN) 33 mg/dL (9-23)
[2016-06-25 07:27] LABS: GLUCOSE 70 mg/dL (70-99)
[2016-06-25 07:37] LABS: HEMATOCRIT 32.7 % (38.0-50.0); MCH 31.5 PG (29.0-34.0); MCHC 32.4 G/DL (30.0-36.0); MCV 97.3 FL (86-99); MEAN PLAT.VOLUME 9.6 uM^3 (9.0-12.4); NRBC (%) 0.2 /100 WBC (0-0); PLATELET COUNT 134 K/uL (156-360); RBC DIS.WIDTH-CV 16.2 % (11.8-14.6); RBC DIS.WIDTH-SD 57.6 % (39-53); RED BLOOD COUNT 3.36 M/uL (4.00-5.50); WHITE BLOOD COUNT 15.6 K/uL (4.1-10.2)
[2016-06-25 12:23] LABS: ABS NEUTROPHIL COUNT 13.7; ANISOCYTOSIS 1+; EOSINOPHIL ABS CT 0; PLAT.SUFFICIENCY DECREASED; POLYCHROMASIA 1+
[2016-06-26 03:57] VITALS: BP 130/67
[2016-06-26 06:00] LABS: ANION GAP 12 MEQ/L (2-14); CHLORIDE 111 MEQ/L (99-109); GFR ESTIMATE (CALCULATED) 56 mL/min/; GLUCOSE 103 mg/dL (70-99); POTASSIUM 3.3 MEQ/L (3.7-5.4); SAMPLE HEMOLYSIS CHECK 0; SAMPLE ICTERIC CHECK 0; SAMPLE LIPEMIA CHECK 0; SODIUM 143 MEQ/L (136-147); UREA NITROGEN (BUN) 31 mg/dL (9-23)
[2016-06-26 08:13] VITALS: BP 129/59
[2016-06-26 08:48] LABS: ABS NEUTROPHIL COUNT 17.8; ANISOCYTOSIS 1+; BAND NEUTROPHILS 11.5 % (0-8.0); EOSINOPHIL ABS CT 0; HEMATOCRIT 38.4 % (38.0-50.0); INSTRUMENT ABS NEUTROPHIL CT 14.1 K/uL; LYMPHOCYTES 9.5 % (15.0-45.0); MACROCYTES 1+; MCH 31.5 PG (29.0-34.0); MCHC 32.3 G/DL (30.0-36.0); MCV 97.5 FL (86-99); MEAN PLAT.VOLUME 10.3 uM^3 (9.0-12.4); MYELOCYTES 0.5 %; NRBC (%) 0.3 /100 WBC (0-0); NUCLEATED RBC'S 0.5; PLAT.SUFFICIENCY ADEQUATE; PLATELET CLUMPS PRESENT - PLATELET COUNT APPEARS ADQ.; PLATELET COUNT 95 K/uL (156-360); POLYCHROMASIA 1+; RBC DIS.WIDTH-CV 16.6 % (11.8-14.6); RBC DIS.WIDTH-SD 59.2 % (39-53); RED BLOOD COUNT 3.94 M/uL (4.00-5.50); SPHEROCYTES 1+; WHITE BLOOD COUNT 20.6 K/uL (4.1-10.2)
[2016-06-26 12:37] VITALS: BP 134/67
[2016-06-26 15:16] VITALS: BP 139/64
[2016-06-26 20:10] VITALS: BP 125/73
[2016-06-26 23:13] VITALS: BP 154/56
[2016-06-27 03:50] VITALS: BP 151/66
[2016-06-27 07:25] LABS: ANION GAP 8 MEQ/L (2-14); CHLORIDE 113 MEQ/L (99-109); GFR ESTIMATE (CALCULATED) > 59 mL/min/; GLUCOSE 112 mg/dL (70-99); POTASSIUM 3.7 MEQ/L (3.7-5.4); SAMPLE HEMOLYSIS CHECK 0; SAMPLE ICTERIC CHECK 0; SAMPLE LIPEMIA CHECK 0; SODIUM 145 MEQ/L (136-147); UREA NITROGEN (BUN) 28 mg/dL (9-23)
[2016-06-27 08:31] VITALS: BP 130/62
[2016-06-27 09:00] LABS: HEMATOCRIT 33.6 % (38.0-50.0); MCH 31.3 PG (29.0-34.0); MCHC 32.1 G/DL (30.0-36.0); MCV 97.4 FL (86-99); MEAN PLAT.VOLUME 9.8 uM^3 (9.0-12.4); NRBC (%) 0.3 /100 WBC (0-0); RBC DIS.WIDTH-CV 17.2 % (11.8-14.6); RBC DIS.WIDTH-SD 59.7 % (39-53); RED BLOOD COUNT 3.45 M/uL (4.00-5.50); WHITE BLOOD COUNT 15.4 K/uL (4.1-10.2)
[2016-06-27 09:04] LABS: PLATELET COUNT 144 K/uL (156-360)
[2016-06-27 11:35] VITALS: BP 142/58
[2016-06-27 15:50] LABS: INTER. NORMALIZED RATIO 1.1; PROTHROMBIN TIME 10.7 (9.2-11.2)
[2016-06-27 16:03] LABS: PTT 29.2 (25-32)
[2016-06-27 16:48] VITALS: BP 129/69
[2016-06-27 20:12] VITALS: BP 115/58
[2016-06-27 22:30] VITALS: BP 118/59
[2016-06-28] VITALS (7 sets, daily range): BP systolic 117–132; BP diastolic 57–64
[2016-06-28 07:28] LABS: ANION GAP 10 MEQ/L (2-14); CHLORIDE 115 MEQ/L (99-109); GFR ESTIMATE (CALCULATED) > 59 mL/min/; POTASSIUM 3.8 MEQ/L (3.7-5.4); SAMPLE HEMOLYSIS CHECK 0; SAMPLE ICTERIC CHECK 0; SAMPLE LIPEMIA CHECK 0; SODIUM 148 MEQ/L (136-147); UREA NITROGEN (BUN) 25 mg/dL (9-23)
[2016-06-28 07:29] LABS: GLUCOSE 83 mg/dL (70-99)
[2016-06-28 07:33] LABS: HEMATOCRIT 34.5 % (38.0-50.0); MCH 31.5 PG (29.0-34.0); MCHC 32.5 G/DL (30.0-36.0); MCV 96.9 FL (86-99); MEAN PLAT.VOLUME 9.7 uM^3 (9.0-12.4); NRBC (%) 0.4 /100 WBC (0-0); PLATELET COUNT 136 K/uL (156-360); RBC DIS.WIDTH-CV 17.5 % (11.8-14.6); RBC DIS.WIDTH-SD 59.3 % (39-53); RED BLOOD COUNT 3.56 M/uL (4.00-5.50); WHITE BLOOD COUNT 15.2 K/uL (4.1-10.2)
[2016-06-29] VITALS: BP 125/77
[2016-06-29 04:00] VITALS: BP 155/70
[2016-06-29 07:53] VITALS: BP 151/62
[2016-06-29 16:01] VITALS: BP 133/67
[2016-06-29 20:05] VITALS: BP 146/70
[2016-06-30 01:09] VITALS: BP 159/85
[2016-06-30 04:00] VITALS: BP 148/66
[2016-06-30 07:51] VITALS: BP 150/66
[2016-06-30 08:40] LABS: HEMATOCRIT 30.4 % (38.0-50.0); MCH 31.6 PG (29.0-34.0); MCHC 31.3 G/DL (30.0-36.0); MEAN PLAT.VOLUME 9.2 uM^3 (9.0-12.4); NRBC (%) 0.2 /100 WBC (0-0); PLATELET COUNT 140 K/uL (156-360); RBC DIS.WIDTH-CV 18.3 % (11.8-14.6); RBC DIS.WIDTH-SD 64.5 % (39-53); RED BLOOD COUNT 3.01 M/uL (4.00-5.50); WHITE BLOOD COUNT 12.1 K/uL (4.1-10.2)
[2016-06-30 09:07] LABS: CHLORIDE 122 mEq/L (99-109); POTASSIUM 3.5 mEq/L (3.7-5.4); SODIUM 152 mEq/L (136-147)
[2016-06-30 09:10] LABS: ANION GAP 7 MEQ/L (2-14); GLUCOSE 106 mg/dL (70-99)
[2016-06-30 09:13] LABS: GFR ESTIMATE (CALCULATED) > 59 mL/min/; UREA NITROGEN (BUN) 19 mg/dL (9-23)
[2016-06-30 11:43] VITALS: BP 146/65
[2016-07-01 00:47] VITALS: BP 147/70
[2016-07-01 07:21] LABS: HEMATOCRIT 30.4 % (38.0-50.0); MCH 31.5 PG (29.0-34.0); MCHC 31.3 G/DL (30.0-36.0); MCV 100.7 FL (86-99); MEAN PLAT.VOLUME 9.6 uM^3 (9.0-12.4); NRBC (%) 0.3 /100 WBC (0-0); PLATELET COUNT 142 K/uL (156-360); RBC DIS.WIDTH-CV 18.2 % (11.8-14.6); RBC DIS.WIDTH-SD 65.2 % (39-53); RED BLOOD COUNT 3.02 M/uL (4.00-5.50); WHITE BLOOD COUNT 11.3 K/uL (4.1-10.2)
[2016-07-01 07:29] LABS: ANION GAP 7 MEQ/L (2-14); CHLORIDE 119 MEQ/L (99-109); GFR ESTIMATE (CALCULATED) > 59 mL/min/; GLUCOSE 83 mg/dL (70-99); POTASSIUM 3.4 MEQ/L (3.7-5.4); SAMPLE HEMOLYSIS CHECK 0; SAMPLE ICTERIC CHECK 0; SAMPLE LIPEMIA CHECK 0; SODIUM 151 MEQ/L (136-147); UREA NITROGEN (BUN) 16 mg/dL (9-23)
[2016-07-01 08:02] VITALS: BP 143/71
[2016-07-01 14:46] LABS: ANION GAP 9 MEQ/L (2-14); CHLORIDE 118 MEQ/L (99-109); GFR ESTIMATE (CALCULATED) > 59 mL/min/; GLUCOSE 95 mg/dL (70-99); MAGNESIUM 1.7 mg/dl (1.3-2.7); POTASSIUM 3.4 MEQ/L (3.7-5.4); SAMPLE HEMOLYSIS CHECK 0; SAMPLE ICTERIC CHECK 0; SAMPLE LIPEMIA CHECK 0; SODIUM 147 MEQ/L (136-147); UREA NITROGEN (BUN) 16 mg/dL (9-23)
[2016-07-01 15:11] VITALS: BP 146/72
[2016-07-02 00:27] VITALS: BP 112/53
[2016-07-02 07:26] LABS: HEMATOCRIT 27.2 % (38.0-50.0); MCH 31.3 PG (29.0-34.0); MCHC 32.4 G/DL (30.0-36.0); MCV 96.8 FL (86-99); NRBC (%) 0.3 /100 WBC (0-0); RBC DIS.WIDTH-CV 17.7 % (11.8-14.6); RBC DIS.WIDTH-SD 60.1 % (39-53); RED BLOOD COUNT 2.81 M/uL (4.00-5.50); WHITE BLOOD COUNT 10.9 K/uL (4.1-10.2)
[2016-07-02 08:04] VITALS: BP 117/67
[2016-07-02 08:09] LABS: ALKALINE PHOSPHATASE 97 IU/L (3-129); ANION GAP 6 MEQ/L (2-14); CHLORIDE 114 MEQ/L (99-109); DIRECT BILIRUBIN 0.1 mg/dL (0.0-0.3); GFR ESTIMATE (CALCULATED) > 59 mL/min/; GLUCOSE 86 mg/dL (70-99); MAGNESIUM 1.6 mg/dl (1.3-2.7); POTASSIUM 3.2 MEQ/L (3.7-5.4); PREALBUMIN 7.8 mg/dL (10-40); SAMPLE HEMOLYSIS CHECK 0; SAMPLE ICTERIC CHECK 0; SAMPLE LIPEMIA CHECK 0; SODIUM 142 MEQ/L (136-147); TOTAL BILIRUBIN 0.5 MG/DL (0.0-1.0); TRIGLYCERIDES 133 MG/DL (Normal: <150); UREA NITROGEN (BUN) 14 mg/dL (9-23)
[2016-07-02 08:19] LABS: ABS NEUTROPHIL COUNT 8.5; ANISOCYTOSIS 1+; ATYPICAL LYMPHOCYTE 1.8 %; BAND NEUTROPHILS 5.3 % (0-8.0); BURR CELLS 1+; EOSINOPHIL ABS CT 0; INSTRUMENT ABS NEUTROPHIL CT 7.2 K/uL; LYMPHOCYTES 11.5 % (15.0-45.0); MEAN PLAT.VOLUME 9.3 uM^3 (9.0-12.4); METAMYELOCYTES 2.6 %; MYELOCYTES 0.9 %; PLAT.SUFFICIENCY DECREASED; PLATELET COUNT 139 K/uL (156-360); POLYCHROMASIA 1+; SEG.NEUTROPHILS 72.6 % (46.0-76.0); SPHEROCYTES 1+
[2016-07-02 15:57] VITALS: BP 130/62
[2016-07-03 03:48] VITALS: BP 153/62
[2016-07-03 07:21] LABS: HEMATOCRIT 27.9 % (38.0-50.0); MCH 31.7 PG (29.0-34.0); MCHC 32.6 G/DL (30.0-36.0); MCV 97.2 FL (86-99); MEAN PLAT.VOLUME 10.1 uM^3 (9.0-12.4); NRBC (%) 0.2 /100 WBC (0-0); PLATELET COUNT 109 K/uL (156-360); RBC DIS.WIDTH-SD 61.6 % (39-53); RED BLOOD COUNT 2.87 M/uL (4.00-5.50); WHITE BLOOD COUNT 10.2 K/uL (4.1-10.2)
[2016-07-03 07:46] LABS: ANION GAP 9 MEQ/L (2-14); CHLORIDE 111 MEQ/L (99-109); GFR ESTIMATE (CALCULATED) > 59 mL/min/; GLUCOSE 113 mg/dL (70-99); MAGNESIUM 1.8 mg/dl (1.3-2.7); POTASSIUM 3.8 MEQ/L (3.7-5.4); SAMPLE HEMOLYSIS CHECK 0; SAMPLE ICTERIC CHECK 0; SAMPLE LIPEMIA CHECK 0; SODIUM 141 MEQ/L (136-147); UREA NITROGEN (BUN) 17 mg/dL (9-23)
[2016-07-03 08:03] VITALS: BP 146/64
[2016-07-03 13:27] VITALS: BP 131/60
[2016-07-03 15:45] VITALS: BP 137/61
[2016-07-03 23:21] VITALS: BP 136/71
[2016-07-04 06:50] LABS: ANION GAP 12 MEQ/L (2-14); CHLORIDE 112 MEQ/L (99-109); GFR ESTIMATE (CALCULATED) > 59 mL/min/; GLUCOSE 110 mg/dL (70-99); MAGNESIUM 2.3 mg/dl (1.3-2.7); POTASSIUM 4.3 MEQ/L (3.7-5.4); SAMPLE HEMOLYSIS CHECK 1; SAMPLE ICTERIC CHECK 0; SAMPLE LIPEMIA CHECK 0; SODIUM 141 MEQ/L (136-147); UREA NITROGEN (BUN) 24 mg/dL (9-23)
[2016-07-04 08:27] VITALS: BP 122/50
[2016-07-04 11:10] VITALS: BP 139/61
[2016-07-04 16:23] VITALS: BP 138/60
[2016-07-05] VITALS: BP 161/68
[2016-07-05 07:33] LABS: HEMATOCRIT 27.7 % (38.0-50.0); MCH 31.8 PG (29.0-34.0); MCHC 32.9 G/DL (30.0-36.0); MCV 96.9 FL (86-99); MEAN PLAT.VOLUME 9.1 uM^3 (9.0-12.4); PLATELET COUNT 140 K/uL (156-360); RBC DIS.WIDTH-SD 62.6 % (39-53); RED BLOOD COUNT 2.86 M/uL (4.00-5.50); WHITE BLOOD COUNT 8.9 K/uL (4.1-10.2)
[2016-07-05 07:53] LABS: ANION GAP 6 MEQ/L (2-14); CHLORIDE 111 MEQ/L (99-109); GFR ESTIMATE (CALCULATED) > 59 mL/min/; MAGNESIUM 2.2 mg/dl (1.3-2.7); POTASSIUM 4.2 MEQ/L (3.7-5.4); SAMPLE HEMOLYSIS CHECK 0; SAMPLE ICTERIC CHECK 0; SAMPLE LIPEMIA CHECK 0; SODIUM 140 MEQ/L (136-147); UREA NITROGEN (BUN) 25 mg/dL (9-23)
[2016-07-05 08:00] LABS: GLUCOSE 78 mg/dL (70-99)
[2016-07-05 08:11] VITALS: BP 118/70
[2016-07-05 11:04] VITALS: BP 110/60
[2016-07-05 16:00] VITALS: BP 124/77
[2016-07-05 23:53] VITALS: BP 111/60
[2016-07-06 07:27] LABS: ANION GAP 7 MEQ/L (2-14); CHLORIDE 111 MEQ/L (99-109); GFR ESTIMATE (CALCULATED) 56 mL/min/; MAGNESIUM 2.1 mg/dl (1.3-2.7); POTASSIUM 4.3 MEQ/L (3.7-5.4); SAMPLE HEMOLYSIS CHECK 0; SAMPLE ICTERIC CHECK 0; SAMPLE LIPEMIA CHECK 0; SODIUM 141 MEQ/L (136-147); UREA NITROGEN (BUN) 24 mg/dL (9-23)
[2016-07-06 07:28] LABS: GLUCOSE 106 mg/dL (70-99)
[2016-07-06 07:46] VITALS: BP 135/61
[2016-07-06 16:03] VITALS: BP 110/59
[2016-07-07 00:25] VITALS: BP 126/62
[2016-07-07 07:05] LABS: ANION GAP 7 MEQ/L (2-14); CHLORIDE 110 MEQ/L (99-109); GFR ESTIMATE (CALCULATED) 56 mL/min/; GLUCOSE 123 mg/dL (70-99); MAGNESIUM 1.9 mg/dl (1.3-2.7); POTASSIUM 4.5 MEQ/L (3.7-5.4); SAMPLE HEMOLYSIS CHECK 0; SAMPLE ICTERIC CHECK 0; SAMPLE LIPEMIA CHECK 0; SODIUM 142 MEQ/L (136-147); UREA NITROGEN (BUN) 23 mg/dL (9-23)
[2016-07-07 07:49] VITALS: BP 148/70
[2016-07-07 14:46] VITALS: BP 134/63
== END 2016-07-07 15:39 | disposition hospice, home (50) | DRG 871 ==
LOC: EME → EDBD 19:05 → EME 19:05 → 5SOUTH 23:45 → EDOF 23:45 → 4WEST 23:45 → 5SOUTH 06-22 14:55
PROVIDERS: Emergency Medicine; Hospitalist; Internal Medicine; Internal Medicine Nephrology; Physician Assistant; Physician Assistant Medical
DX: A41.9 Sepsis, unspecified organism (principal); G93.41 Metabolic encephalopathy; I21.3 ST elevation (STEMI) myocardial infarction of unspecified site; J18.9 Pneumonia, unspecified organism; I50.22 Chronic systolic (congestive) heart failure; I42.9 Cardiomyopathy, unspecified; J96.11 Chronic respiratory failure with hypoxia; E87.0 Hyperosmolality and hypernatremia; N17.9 Acute kidney failure, unspecified; N39.0 Urinary tract infection, site not specified; J44.1 Chronic obstructive pulmonary disease with (acute) exacerbation; I48.1 Persistent atrial fibrillation; E44.0 Moderate protein-calorie malnutrition; E87.2 Acidosis; N18.4 Chronic kidney disease, stage 4 (severe); I12.9 Hypertensive chronic kidney disease with stage 1 through stage 4 chronic kidney disease, or unspecified chronic kidney disease; F10.10 Alcohol abuse, uncomplicated; K21.9 Gastro-esophageal reflux disease without esophagitis; I49.5 Sick sinus syndrome; E87.5 Hyperkalemia; R41.82 Altered mental status, unspecified; I48.0 Paroxysmal atrial fibrillation; R00.1 Bradycardia, unspecified; R62.7 Adult failure to thrive; I73.9 Peripheral vascular disease, unspecified; E86.0 Dehydration; G31.9 Degenerative disease of nervous system, unspecified; T46.0X5A Adverse effect of cardiac-stimulant glycosides and drugs of similar action, initial encounter; R74.0 Nonspecific elevation of levels of transaminase and lactic acid dehydrogenase [LDH]; R32 Unspecified urinary incontinence; Z79.82 Long term (current) use of aspirin; Z99.81 Dependence on supplemental oxygen; Z88.0 Allergy status to penicillin; Z87.891 Personal history of nicotine dependence; Z91.19 Patient's noncompliance with other medical treatment and regimen; Z51.5 Encounter for palliative care
CPT/HCPCS: 36600; 70450; 71010; 71020; 71250; 74176; 74230; 76770; 76937; 80047; 80048; 80048 91; 80053; 80069; 80074; 80162; 81003; 82248; 82803; 83605; 83690; 83735; 84100; 84134; 84478; 84484; 84630 90; 85025; 85027; 85610; 85730; 87040; 87077; 87086; 87186; 87502; 87641; 92610 GN; 92611 GN; 93005; 94640 76; 94760; 94799; 99202; 99281; 99285; B4087; J0692; J0696; J1815; J3370; J3480; J7030; J7042; J7050; J7070

== ENCOUNTER 2017-06-25 13:39 | Emergency (ER) | payer OTHER ==
[~2017-06-25] VITALS: Ht 167.6 cm; Wt 64.6 kg
[~2017-06-25 13:39] MED LIST changes: +COREG12.5 M1 PO
[2017-06-25 17:56] LABS: HEMATOCRIT 36.4 % (38.0-50.0); HEMOGLOBIN 12.3 G/DL (12.5-16.6); MCH 30.2 PG (29.0-34.0); MCHC 33.8 G/DL (30.0-36.0); MCV 89.4 FL (86-99); PLATELET COUNT 193 K/uL (156-360); RBC DIS.WIDTH-CV 14.4 % (11.8-14.6); RBC DIS.WIDTH-SD 46.7 % (39-53); RED BLOOD COUNT 4.07 M/uL (4.00-5.50); WHITE BLOOD COUNT 17.2 K/uL (4.1-10.2)
[2017-06-25 18:06] LABS: CHLORIDE 98 mEq/L (99-109); POTASSIUM 3.6 mEq/L (3.7-5.4); SODIUM 136 mEq/L (136-147)
[2017-06-25 18:08] LABS: GLUCOSE 112 mg/dL (70-99)
[2017-06-25 18:12] LABS: GFR ESTIMATE (CALCULATED) 34 mL/min/ (58.99-99999)
[2017-06-25 18:13] LABS: UREA NITROGEN (BUN) 20 mg/dL (9-23)
[2017-06-25 18:36] LABS: APPEARANCE CLOUDY ((CLEAR)); BILIRUBIN NEGATIVE; BLOOD MODERATE; COLOR YELLOW ((YELLOW)); GLUCOSE (STRIP) NEGATIVE; KETONES NEGATIVE; LEUKOCYTES LARGE; NITRITE POSITIVE; PROTEIN (STRIP) 30; SPECIFIC GRAVITY 1.009 (1.000-1.030); UROBILINOGEN 0.2 MG/DL (0.2-1.0)
[2017-06-25] MEDS ORDERED: LEVOFLOXACIN500 MG PO (18:45)
[2017-06-25 19:14] LABS: BACTERIA 4+ /HPF; EPITHELIAL CELLS NONE SEEN /HPF; MUCUS NONE SEEN /LPF; WHITE BLOOD CELLS TNTC /HPF (0-5)
[2017-06-25 19:26] VITALS: BP 115/57
== END 2017-06-25 19:26 | disposition home or self-care (01) ==
LOC: EME 13:39
PROVIDERS: Family Medicine
PROC: 0T9B70Z Drainage of Bladder with Drainage Device, Via Natural or Artificial Opening (ICD-10-PCS; principal; 2017-06-25)
DX: N39.0 Urinary tract infection, site not specified (principal); I12.9 Hypertensive chronic kidney disease with stage 1 through stage 4 chronic kidney disease, or unspecified chronic kidney disease; N18.9 Chronic kidney disease, unspecified; N40.0 Benign prostatic hyperplasia without lower urinary tract symptoms; J44.9 Chronic obstructive pulmonary disease, unspecified; E78.5 Hyperlipidemia, unspecified; Z88.0 Allergy status to penicillin; Z87.891 Personal history of nicotine dependence
CPT/HCPCS: 80048; 81003; 85027; 99281; 99285